=== PATIENT | female | born 1945 | race Caucasian/White ===

== ENCOUNTER 2018-11-27 13:59 | Emergency (ER) | payer MEDICARE ==
--- NOTE | 2018-11-27 14:25 | ED.PDOC ---
History of Present Illness - General Chief Complaint: Chest Pain/MT Stated Complaint: right shoulder pain radiating to chest Time Seen by Provider: 11/27/18 14:21 Source: patient Exam Limitations: no limitations - History of Present Illness Initial Comments: CHEST PAIN WHILE DRIVING. ACUTE ONSET THAT STARTED ON THE RIGHT SHOULDER AND RADIATED TO THE RIGHT RIBCAGE. SHE DESCRIBES IT A CRAMPY SHARP PAIN THAT LASTED 10 MINUTES ASSOCIATED WITH DIAPHORESIS. SHE RATED THE PAIN BETWEEN A 6- 8/10. SHE STOPPED AT A [facility] AND THEN CALLED EMS. SHE WAS TRANSPORTED BY AMBULANCE. EN ROUTE SHE WAS GIVEN ASA AND SINCE THEN SHE HAS BEEN PAIN FREE. SHE VOICES THAT THIS IS THE R=THIRD EPISODE THAT SHE HAS. NONE HAS EVER LASTED MORE THAN 10 MINUTES. SHE IS A SMOKER AND HAS HTN AND CHOLESTEROL. Timing/Duration: other - 10 MINUTES Severity/Quality: moderate Location: shoulder Chest Pain Radiation: other - RIGHT RIB CAGE Activities at Onset: none Prior Chest Pain/Cardiac Workup: no prior chest pain Improving Factors: nothing Worsening Factors: nothing Aspirin Treatment Today: 325 mg x 1 Associated Symptoms: diaphoresis, shortness of breath Allergies/Adverse Reactions: Allergies NO KNOWN ALLERGY Allergy (Verified 11/27/18 14:28) Home Medications: Ambulatory Orders Atorvastatin Calcium [Lipitor] 10 mg PO BEDTIME 11/27/18 Cetirizine HCl [ZyrTEC] 10 mg PO BEDTIME 11/27/18 Cholecalciferol [Vitamin D3] 5,000 unit PO BEDTIME 11/27/18 Losartan Potassium 50 mg PO BEDTIME 11/27/18 Nitrofurantoin Cap [Macrodantin Cap] 50 mg PO BEDTIME 11/27/18 Nitroglycerin 0.4 mg Tab [Nitrostat] 0.4 mg SL .Q5M #20 bttl 11/27/18 Review of Systems - Review of Systems Constitutional: States: no symptoms reported EENTM: States: no symptoms reported Respiratory: States: short of breath Cardiology: States: chest pain Genitourinary: States: no symptoms reported Musculoskeletal: States: no symptoms reported Skin: States: no symptoms reported Neurological: States: no symptoms reported Endocrine: States: no symptoms reported Hematologic/Lymphatic: States: no symptoms reported Past Medical History (General) - Patient Medical History Hx Asthma: No Hx of COPD: No Hx Cardiac Disorders: No Hx Hypertension: Yes - AND CHOLESTEROL Hx Diabetes: No Surgical History: Hysterectomy - Vaccination History Hx Influenza Vaccination: Yes - 2018 Hx Pneumococcal Vaccination: Yes - 2016 - Social History Hx Tobacco Use: Yes Family Medical History - Family History Mother Family History: No Known Physical Exam - Physical Exam General Appearance: Alert, Well Developed, Well Groomed, Well Nourished Eyes, Ears, Nose, Throat Exam: PERRL/EOMI, normal ENT inspection Neck: non-tender Respiratory: chest non-tender, lungs clear, normal breath sounds Cardiovascular/Chest: normal peripheral pulses, regular rate, rhythm, no edema, no gallop Peripheral Pulses: radial,right: 2+, radial,left: 2+ Gastrointestinal/Abdominal: normal bowel sounds, non tender, soft, no organomegaly Rectal Exam: deferred Extremity: normal range of motion Neurologic: no motor/sensory deficits, oriented x 3 Skin Exam: normal color Progress - Progress Progress: 11/27/18 15:38 11/27/18 14:30 EKG STAT Laboratory Results WBC 8.6 K/mm3 (4.8-10.8) 11/27/18 14:39 RBC 5.40 M/mm3 (4.20-5.40) 11/27/18 14:39 Hgb 14.1 gm/dL (12.0-16.0) 11/27/18 14:39 Hct 43.7 % (36.0-47.0) 11/27/18 14:39 MCV 80.9 fl (81.0-99.0) L 11/27/18 14:39 MCH 26.1 pg (27.0-31.0) L 11/27/18 14:39 MCHC 32.3 g/dL (33.0-37.0) L 11/27/18 14:39 RDW 13.8 % (11.5-14.5) 11/27/18 14:39 Plt Count 255 K/mm3 (130-400) 11/27/18 14:39 MPV 7.6 fl (7.40-10.4) 11/27/18 14:39 Absolute Neuts (auto) 4.60 K/uL (1.8-6.8) 11/27/18 14:39 Absolute Lymphs (auto) 3.00 K/uL (1.0-3.4) 11/27/18 14:39 Absolute Monos (auto) 0.70 K/uL (0.2-0.8) 11/27/18 14:39 Absolute Eos (auto) 0.10 K/uL (0.0-0.4) 11/27/18 14:39 Absolute Basos (auto) 0.10 K/uL (0.0-0.1) 11/27/18 14:39 Neutrophils % 54.1 % (42.0-78.0) 11/27/18 14:39 Lymphocytes % 35.1 % (20.0-50.0) 11/27/18 14:39 Monocytes % 8.4 % (2.0-9.0) 11/27/18 14:39 Eosinophils % 1.7 % (1.0-5.0) 11/27/18 14:39 Basophils % 0.7 % (0.0-2.0) 11/27/18 14:39 Sodium 134 mmol/L (135-145) L 11/27/18 14:39 ekg: HR OF Potassium 4.2 mmol/L (3.6-5.0) 11/27/18 14:39 Chloride 101 mmol/L (101-111) 11/27/18 14:39 Carbon Dioxide 22 mmol/L (21-31) 11/27/18 14:39 Anion Gap 15.2 (12-18) 11/27/18 14:39 BUN 20 mg/dL (7-18) H 11/27/18 14:39 THE PATIENT HAS MAINTAINED CHEST PAIN FREE. Creatinine 0.83 mg/dL (0.6-1.3) 11/27/18 14:39 BUN/Creatinine Ratio 24.1 (10-20) H 11/27/18 14:39 Random Glucose 95 mg/dL (70-105) 11/27/18 14:39 Serum Osmolality 270.7 mOsm/L (275-295) L 11/27/18 14:39 Calcium 8.8 mg/dL (8.4-10.2) 11/27/18 14:39 Total Bilirubin 0.4 mg/dL (0.2-1.0) 11/27/18 14:39 AST 18 IU/L (10-42) 11/27/18 14:39 ALT 20 IU/L (10-60) 11/27/18 14:39 Alkaline Phosphatase 89 IU/L (42-121) 11/27/18 14:39 Troponin I < 0.02 ng/mL (0.01-0.05) 11/27/18 14:39 B-Natriuretic Peptide 14.8 pg/ml (0-100) 11/27/18 14:39 Serum Total Protein 7.5 gm/dL (6.4-8.2) 11/27/18 14:39 Albumin 3.9 g/dl (3.2-5.5) 11/27/18 14:39 Globulin 3.6 gm/dL (2.3-3.5) H 11/27/18 14:39 Albumin/Globulin Ratio 1.1 (1.1-1.9) 11/27/18 14:39 EKG: HR OF 70, MI INTERVAL OF 69, QRS OF 120: IMPRESSION: SINUS RHYTHM, NO ACUTE INJURY PATTERN 11/27/18 15:40 THE PATIENT HAS MAINTAINED CHEST PAIN FREE. SHE NEEDS TO F/U WITH [facility] OF CHOICE. Departure - Departure Clinical Impression: Chest pain, atypical Time of Disposition: 15:43 Disposition: Discharge to Home or Self Care Condition: Good Departure Forms: ED Discharge - Pt. Copy, Patient Portal Self Enrollment Instructions: DI for Chest Pain Referrals: Georgia Montes FNP [Primary Care Provider] - 1-2 Weeks Prescriptions: Nitroglycerin 0.4 mg Tab [Nitrostat] 0.4 mg SL .Q5M #20 bttl Home Medications: Ambulatory Orders Atorvastatin Calcium [Lipitor] 10 mg PO BEDTIME 11/27/18 Cetirizine HCl [ZyrTEC] 10 mg PO BEDTIME 11/27/18 Cholecalciferol [Vitamin D3] 5,000 unit PO BEDTIME 11/27/18 Losartan Potassium 50 mg PO BEDTIME 11/27/18 Nitrofurantoin Cap [Macrodantin Cap] 50 mg PO BEDTIME 11/27/18 Nitroglycerin 0.4 mg Tab [Nitrostat] 0.4 mg SL .Q5M #20 bttl 11/27/18
--- NOTE | 2018-11-27 14:46 | RAD ---
EXAM DESCRIPTION: Chest,1 View CLINICAL HISTORY: 73 years Female, CHEST PAIN COMPARISON: None. TECHNIQUE: Single frontal view of the chest. IMPRESSION: Cardiac silhouette is normal in size. Aorta is partially calcified. Bibasilar atelectasis without lobar consolidation. No pleural effusion or pneumothorax. Thoracic spondylosis. Electronically signed by: Lan Hunt MD 11/27/2018 2:42 PM CDT
[2018-11-27 15:56] VITALS: BP 160/59; TEMP 96.3; O2SAT 93
== END 2018-11-27 16:00 | disposition home or self-care (01) ==
LOC: ER 13:59
DX: R07.89 Other chest pain (principal); R06.02 Shortness of breath; I10 Essential (primary) hypertension; E78.00 Pure hypercholesterolemia, unspecified; F17.200 Nicotine dependence, unspecified, uncomplicated

== ENCOUNTER 2019-06-08 17:07 | Emergency (ER) | payer MEDICARE ==
[2019-06-08 17:33] VITALS: TEMP 97.7
[2019-06-08] MEDS ORDERED: SODIUM CHLORIDE 0.9% (FLUSH) 10 ML SYG IV PRN (17:33)
[2019-06-08] MEDS ORDERED: NITROGLYCERIN 0.4 MG 25 EA TAB SL ONE (17:33)
[2019-06-08] MEDS ORDERED: ASPIRIN TABLET 325 MG TAB PO ONE (17:33)
[2019-06-08] MEDS ORDERED: ONDANSETRON INJ 4 MG/2 ML VIAL IV ONE (17:33)
[2019-06-08] MEDS ORDERED: ALUM & MAG HYDROX-SIMETHICONE 30 ML, LIDOCAINE VISCOUS 2% 15 ML PO ONE ×2 (17:34)
--- NOTE | 2019-06-08 17:37 | ED.PDOC ---
History of Present Illness - General Chief Complaint: Chest Pain/SC Stated Complaint: chest discomfort,nausea Time Seen by Provider: 06/08/19 17:32 - History of Present Illness Initial Comments: Patient presents to the ED complaining of chest pain. PMH is significant for hypertension, high cholesterol, smoking. She states that the symptoms started yesterday and she thinks that it might be indigestion. She did not eat breakfast this morning because she felt nauseated. She was able to eat some lunch but she felt chest pain afterward. She complains of associated nausea and shortness of breath. No vomiting or diaphoresis. Mild headache. She states that she does not have any known CAD, last had a stress test more than 5 years ago but it was normal at that time. No other complaints. Timing/Duration: 7-24 hours Severity/Quality: mild Location: substernal, epigastric, shoulder, back Chest Pain Radiation: back Activities at Onset: none Prior Chest Pain/Cardiac Workup: stress test Improving Factors: nothing Worsening Factors: eating Nitro Today/Relief: no nitro taken today Aspirin Treatment Today: 81 mg x 1 Associated Symptoms: fatigue, shortness of breath, weakness Allergies/Adverse Reactions: Allergies Cephalexin [From Keflex] Allergy (Verified 06/08/19 17:33) Home Medications: Ambulatory Orders Atorvastatin Calcium [Lipitor] 10 mg PO BEDTIME 11/27/18 Cholecalciferol [Vitamin D3] 5,000 unit PO BEDTIME 11/27/18 Losartan Potassium 50 mg PO BEDTIME 11/27/18 Nitrofurantoin Cap [Macrodantin Cap] 100 mg PO BEDTIME 11/27/18 Nitroglycerin 0.4 mg Tab [Nitrostat] 0.4 mg SL .Q5M PRN 06/08/19 Review of Systems - Review of Systems Constitutional: States: no symptoms reported EENTM: States: no symptoms reported Respiratory: States: short of breath Cardiology: States: chest pain Gastrointestinal/Abdominal: States: abdominal pain Genitourinary: States: no symptoms reported Musculoskeletal: States: no symptoms reported Skin: States: no symptoms reported Neurological: States: no symptoms reported Hematologic/Lymphatic: States: no symptoms reported All other Systems: Reviewed and Negative Past Medical History (General) - Patient Medical History Hx Stroke: No Hx Asthma: No Hx of COPD: No Hx Cardiac Disorders: No Hx Congestive Heart Failure: No Hx Hypertension: Yes Hx Diabetes: No Surgical History: Hysterectomy - Vaccination History Hx Influenza Vaccination: Yes Hx Pneumococcal Vaccination: Yes - Social History Hx Tobacco Use: Yes Family Medical History - Family History Mother Family History: No Known Physical Exam - Physical Exam General Appearance: Alert, Comfortable, No apparent distress, Obese, Well Developed, Well Groomed Eyes, Ears, Nose, Throat Exam: normal ENT inspection Respiratory: chest non-tender, lungs clear, normal breath sounds, no respiratory distress, no accessory muscle use Cardiovascular/Chest: normal peripheral pulses, regular rate, rhythm, no murmur Gastrointestinal/Abdominal: normal bowel sounds, other - mild epigastric tenderness Neurologic: no motor/sensory deficits, alert, oriented x 3 Progress - Progress Progress: 06/08/19 19:07 Patient reassessed, workup as above. HEART score 5. Recommended admit for serial troponins, possible stress test. Explained to patient that she is NOT at low risk for ACS. She refused admission and requested to be discharged. All risks, benefits and alternatives discussed. Asked to at least send a repeat troponin which she has also declined. Advised patient to continue daily aspirin and follow up with her PCP for additional testing. Understands that she is welcome to return to the ED at any point to continue treatment. MDM: Patient presents to the ED complaining of chest pain. Workup as below. HEART score 5. I explained to the patient that she is high risk for ACS and that she needs to be admitted for continued evaluation and management. She refused at this time. I recommended minimum of a repeat troponin which she also declined. Risks, benefits and alternatives reviewed including risk of heart attack, sudden cardiac , permanent disability and other unforseen consequences. She continues to refuse admit at this time. Will continue outpatient symptomatic management and she will follow up with PCP. Home care instructions and return indications reviewed. - Results/Orders Results/Orders: 06/08/19 17:33 Telemetry .ONCE EKG Stat Pulse Ox Stat Laboratory Results - last 24 hr 06/08/19 17:33 WBC 13.0 H RBC 5.53 H Hgb 14.3 Hct 43.8 MCV 79.3 L MCH 25.9 L MCHC 32.7 L RDW 14.0 Plt Count 224 MPV 7.8 Absolute Neuts (auto) 7.80 H Absolute Lymphs (auto) 3.80 H Absolute Monos (auto) 1.00 H Absolute Eos (auto) 0.20 Absolute Basos (auto) 0.20 H Neutrophils % 60.0 Lymphocytes % 29.6 Monocytes % 7.5 Eosinophils % 1.4 Basophils % 1.5 PT 9.1 INR 0.91 PTT (SP) 26.5 Sodium 130 L Potassium 4.0 Chloride 94 L Carbon Dioxide 23 Anion Gap 17.0 BUN 11 Creatinine 0.70 BUN/Creatinine Ratio 15.7 Random Glucose 99 Serum Osmolality 260.2 L Calcium 9.2 Magnesium 1.8 Creatine Kinase 156 H CK-MB (CK-2) 3.2 CK-MB (CK-2) % Not Reportable Troponin I < 0.02 B-Natriuretic Peptide 97.0 - EKG/XRAY/CT Comments: 1710 normal sinus rhythm rate 68, normal axis normal interval no STEMI Departure - Departure Clinical Impression: Chest pain Time of Disposition: 19:09 Disposition: Discharge to Home or Self Care Departure Forms: ED Discharge - Pt. Copy, Patient Portal Self Enrollment Instructions: DI for Chest Pain Activity: increase activity as tolerated Referrals: Georgia Montes FNP [Primary Care Provider] - 1-2 Weeks Home Medications: Ambulatory Orders Atorvastatin Calcium [Lipitor] 10 mg PO BEDTIME 11/27/18 Cholecalciferol [Vitamin D3] 5,000 unit PO BEDTIME 11/27/18 Losartan Potassium 50 mg PO BEDTIME 11/27/18 Nitrofurantoin Cap [Macrodantin Cap] 100 mg PO BEDTIME 11/27/18 Nitroglycerin 0.4 mg Tab [Nitrostat] 0.4 mg SL .Q5M PRN 06/08/19 Additional Instructions: Return to the ED with any persistent or worsening symptoms
[2019-06-08] MEDS ORDERED: LIDOCAINE HCL 2% (MOUTH-THROAT) 15 ML UD ONE (17:48)
[2019-06-08] MEDS ORDERED: ALUM & MAG HYDROX-SIMETHICONE 30 ML UD ONE (17:48)
[2019-06-08 18:08] VITALS: O2SAT 97
--- NOTE | 2019-06-08 18:26 | RAD ---
EXAM DESCRIPTION: Chest, x-ray 1 View CLINICAL HISTORY: chest pain COMPARISON: November 27, 2018 FINDINGS: Cardiac silhouette is within normal limits. Aorta is tortuous. There is atherosclerosis. EKG leads project over the chest. Upper ribs were not completely included in the exam. There is no focal parenchymal or pleural disease. There is no acute osseous process visualized. IMPRESSION: No evidence of acute cardiopulmonary disease. Electronically signed by: Jose Miguel Harman MD 06/08/2019 6:25 PM CDT
[2019-06-08 19:03] VITALS: BP 169/85
== END 2019-06-08 19:14 | disposition home or self-care (01) ==
LOC: ER 17:07
DX: R07.2 Precordial pain (principal); R06.02 Shortness of breath; R10.9 Unspecified abdominal pain; R11.0 Nausea; R51 Headache; I10 Essential (primary) hypertension; E66.9 Obesity, unspecified; Z87.891 Personal history of nicotine dependence; Z79.899 Other long term (current) drug therapy; Z88.1 Allergy status to other antibiotic agents; Z68.27 Body mass index [BMI] 27.0-27.9, adult
CPT/HCPCS: 36415; 71045; 80048; 82550; 82553; 83880; 84484; 85025; 85610; 85730; 93005; J2405

== ENCOUNTER 2019-06-09 10:03 | Emergency (ER) | payer MEDICARE ==
[2019-06-09] MEDS ORDERED: SODIUM CHLORIDE 0.9% (FLUSH) 10 ML SYG IV PRN (10:37)
[2019-06-09] MEDS ORDERED: FAMOTIDINE IV PREMIX 20 MG in PREMIX BAG 1 BAG IVPB ONE (10:41)
[2019-06-09] MEDS ORDERED: DICYCLOMINE HCL INJ 20 MG/2 ML AMP IM ONE (10:42)
[2019-06-09] MEDS ORDERED: FAMOTIDINE IV PREMIX 50 ML IVPB ONE (10:53)
--- NOTE | 2019-06-09 11:16 | RAD ---
EXAM: Chest,1 View CLINICAL HISTORY: chest pain COMPARISON STUDY: Chest x-ray from June 08, 2019 TECHNICAL: A single anteroposterior (AP) view of the chest was performed. FINDINGS: No consolidations, effusions, or edema. The heart size is not enlarged. AP portable technique causes magnification with some enlargement of the cardiac silhouette. Atherosclerotic calcifications are present. IMPRESSION: NO ACUTE ABNORMALITY. PA AND LATERAL CHEST X-RAYS ARE RECOMMENDED WHEN POSSIBLE. Electronically signed by: Nain Pedersen MD 06/09/2019 11:15 AM CDT
--- NOTE | 2019-06-09 12:00 | ED.PDOC ---
History of Present Illness - General Chief Complaint: General Stated Complaint: All over body aches Time Seen by Provider: 06/09/19 10:37 - History of Present Illness Initial Comments: Pt says that she is having lower chest pain , pt was admitted in the ER yesterday and her work up was negative , still having 4/10 chest pain associated with some nausea and bodyaches with subjective fever Improving Factors: nothing Worsening Factors: nothing Associated Symptoms: malaise, nausea/vomiting Allergies/Adverse Reactions: Allergies Cephalexin [From Keflex] Allergy (Verified 06/08/19 17:33) Home Medications: Ambulatory Orders Atorvastatin Calcium [Lipitor] 10 mg PO BEDTIME 11/27/18 Cholecalciferol [Vitamin D3] 5,000 unit PO BEDTIME 11/27/18 Losartan Potassium 50 mg PO BEDTIME 11/27/18 Nitrofurantoin Cap [Macrodantin Cap] 100 mg PO BEDTIME 11/27/18 Nitroglycerin 0.4 mg Tab [Nitrostat] 0.4 mg SL .Q5M PRN 06/08/19 levoFLOXacin [Levaquin] 500 mg PO DAILY #10 tab 06/09/19 Review of Systems - Review of Systems Constitutional: States: see HPI EENTM: States: no symptoms reported Respiratory: States: no symptoms reported Cardiology: States: see HPI Gastrointestinal/Abdominal: States: no symptoms reported Genitourinary: Denies: no symptoms reported Musculoskeletal: States: no symptoms reported Skin: States: no symptoms reported Neurological: States: no symptoms reported Endocrine: States: no symptoms reported Hematologic/Lymphatic: States: no symptoms reported All other Systems: Reviewed and Negative Past Medical History (General) - Patient Medical History Hx Stroke: No Hx Asthma: No Hx of COPD: No Hx Cardiac Disorders: No Hx Congestive Heart Failure: No Hx Hypertension: Yes Hx Diabetes: No Hx Cancer: No Surgical History: Hysterectomy - Vaccination History Hx Influenza Vaccination: Yes Hx Pneumococcal Vaccination: Yes - Social History Hx Tobacco Use: Yes Hx Alcohol Use: No - Female History Patient is a Female of Child Bearing Age (10 -59 yrs old): No Patient : No Family Medical History - Family History Mother Family History: No Known Living Status: Physical Exam - Physical Exam General Appearance: Alert Eye Exam: bilateral normal Ears, Nose, Throat: hearing grossly normal, normal ENT inspection Neck: non-tender, full range of motion, supple Respiratory: chest non-tender, lungs clear Cardiovascular/Chest: regular rate, rhythm, no edema Gastrointestinal/Abdominal: non tender, soft Back Exam: normal inspection, no CVA tenderness Extremity: normal range of motion, non-tender, normal inspection Neurologic: no motor/sensory deficits, alert, normal mood/affect, oriented x 3 Skin Exam: normal color, warm/dry Progress - Progress Progress: 06/09/19 13:10 06/09/19 10:37 Sodium Chloride 0.9% (Flush) [Saline Flush Syringe] 3 ml IV PRN PRN 06/09/19 10:45 EKG STAT 06/09/19 12:17 CTA Chest [CT] Stat 06/09/19 12:45 Urine Culture Stat 06/10/19 09:00 Pulse Ox Daily Laboratory Results WBC 13.5 K/mm3 (4.8-10.8) H 06/09/19 11:07 RBC 5.71 M/mm3 (4.20-5.40) H 06/09/19 11:07 Hgb 14.9 gm/dL (12.0-16.0) 06/09/19 11:07 Hct 45.1 % (36.0-47.0) 06/09/19 11:07 MCV 79.0 fl (81.0-99.0) L 06/09/19 11:07 MCH 26.0 pg (27.0-31.0) L 06/09/19 11:07 MCHC 32.9 g/dL (33.0-37.0) L 06/09/19 11:07 RDW 13.9 % (11.5-14.5) 06/09/19 11:07 Plt Count 226 K/mm3 (130-400) 06/09/19 11:07 MPV 7.7 fl (7.40-10.4) 06/09/19 11:07 Absolute Neuts (auto) 9.40 K/uL (1.8-6.8) H 06/09/19 11:07 Absolute Lymphs (auto) 2.70 K/uL (1.0-3.4) 06/09/19 11:07 Absolute Monos (auto) 1.20 K/uL (0.2-0.8) H 06/09/19 11:07 Absolute Eos (auto) 0.10 K/uL (0.0-0.4) 06/09/19 11:07 Absolute Basos (auto) 0.10 K/uL (0.0-0.1) 06/09/19 11:07 Neutrophils % 69.8 % (42.0-78.0) 06/09/19 11:07 Lymphocytes % 19.9 % (20.0-50.0) L 06/09/19 11:07 Monocytes % 9.1 % (2.0-9.0) H 06/09/19 11:07 Eosinophils % 0.5 % (1.0-5.0) L 06/09/19 11:07 Basophils % 0.7 % (0.0-2.0) 06/09/19 11:07 PT 9.1 SECONDS (9.0-10.9) 06/09/19 11:07 INR 0.91 (0.9-1.15) 06/09/19 11:07 PTT (SP) 28.3 SECONDS (21.8-31.6) 06/09/19 11:07 D-Dimer, Quantitative 0.50 mg/L FEU (0-0.49) H 06/09/19 11:07 Sodium 130 mmol/L (135-145) L 06/09/19 11:07 Potassium 4.2 mmol/L (3.6-5.0) 06/09/19 11:07 Chloride 94 mmol/L (101-111) L 06/09/19 11:07 Carbon Dioxide 24 mmol/L (21-31) 06/09/19 11:07 Anion Gap 16.2 (12-18) 06/09/19 11:07 BUN 9 mg/dL (7-18) 06/09/19 11:07 Creatinine 0.66 mg/dL (0.6-1.3) 06/09/19 11:07 BUN/Creatinine Ratio 13.6 (10-20) 06/09/19 11:07 Random Glucose 115 mg/dL (70-105) H 06/09/19 11:07 Serum Osmolality 260.4 mOsm/L (275-295) L 06/09/19 11:07 Calcium 9.4 mg/dL (8.4-10.2) 06/09/19 11:07 Magnesium 2.2 mg/dL (1.8-2.5) 06/09/19 11:07 Creatine Kinase 122 IU/L (26-140) 06/09/19 11:07 CK-MB (CK-2) 2.2 ng/mL (0.0-4.4) 06/09/19 11:07 CK-MB (CK-2) % Not Reportable 06/09/19 11:07 Troponin I < 0.02 ng/mL (0.01-0.05) 06/09/19 11:07 Urine Color Yellow (Yellow) 06/09/19 12:45 Urine Appearance Sl cloudy (Clear) 06/09/19 12:45 Urine pH 7.0 (4.5-7.8) 06/09/19 12:45 Ur Specific [place] 1.015 (1.005-1.030) 06/09/19 12:45 Urine Protein Negative mg/dL 06/09/19 12:45 Urine Glucose (UA) Negative mg/dL (Negative) 06/09/19 12:45 Urine Ketones 15 mg/dL (NEGATIVE) H 06/09/19 12:45 Urine Blood Large (Negative) H 06/09/19 12:45 Urine Nitrite Negative 06/09/19 12:45 Urine Bilirubin Negative (NEGATIVE) 06/09/19 12:45 Urine Urobilinogen 0.2 mg/dL (0.2-1.0) 06/09/19 12:45 Ur Leukocyte Esterase Negative (Negative) 06/09/19 12:45 Urine RBC 20-30 /hpf H 06/09/19 12:45 Urine WBC 3-5 /hpf H 06/09/19 12:45 Ur Epithelial Cells 3-5 /hpf 06/09/19 12:45 Urine Bacteria 3+ H 06/09/19 12:45 - Results/Orders Results/Orders: EKG : Normal Sinus rhythm Departure - Departure Clinical Impression: Chest pain, atypical, Generalized pain, Generally unwell, General symptom Disposition: Discharge to Home or Self Care Departure Forms: ED Discharge - Pt. Copy, Patient Portal Self Enrollment Diet: resume usual diet Activity: increase activity as tolerated, walking as tolerated Referrals: GENNY ROMO MD [Primary Care Provider] - 1-2 Weeks Home Medications: Ambulatory Orders Atorvastatin Calcium [Lipitor] 10 mg PO BEDTIME 11/27/18 Cholecalciferol [Vitamin D3] 5,000 unit PO BEDTIME 11/27/18 Losartan Potassium 50 mg PO BEDTIME 11/27/18 Nitrofurantoin Cap [Macrodantin Cap] 100 mg PO BEDTIME 11/27/18 Nitroglycerin 0.4 mg Tab [Nitrostat] 0.4 mg SL .Q5M PRN 06/08/19 levoFLOXacin [Levaquin] 500 mg PO DAILY #10 tab 06/09/19 Comments: Follow up PCP in 1-2 days
--- NOTE | 2019-06-09 13:19 | CT ---
PROCEDURE: CT Angiography Chest With Intravenous Contrast CLINICAL INDICATION: The patient is 73 years old and is Female; chest pain MAIN TECHNIQUE: Axial computed tomographic angiography images of the chest with intravenous contrast. Sagittal and coronal reformatted images were created and reviewed. This CT exam was performed using one or more of the following dose reduction techniques: automated exposure control, adjustment of the mA and/or kV according to patient size, and/or use of iterative reconstruction technique. MIP reconstructed images were created and reviewed. COMPARISON: Chest x-ray from earlier today. FINDINGS: PULMONARY ARTERIES: There is no evidence of pulmonary artery embolus. The contrast bolus is well timed for this evaluation. AORTA: The thoracic aorta is within normal limits without aneurysm or dissection. GREAT VESSELS OF AORTIC ARCH: Great vessels are unremarkable in appearance. LUNGS: No focal pulmonary consolidation or pulmonary nodules are seen. There is biapical pleuroparenchymal scarring. There is patchy discoid dependent bibasilar atelectasis. Motion artifact at the extreme lung bases obscures some of the smaller distal pulmonary artery branches. PLEURAL SPACE: No pleural effusions identified. No pneumothorax. HEART: No pericardial effusion is identified. Heart is enlarged in size. There are coronary artery calcifications noted. No evidence of RV dysfunction. THYROID: Heterogeneity of the thyroid gland is noted. BONES/JOINTS: No acute fracture. No dislocation. SOFT TISSUES: Unremarkable. LYMPH NODES: There is no mediastinal, hilar or axillary lymphadenopathy. IMPRESSION: There is no evidence of pulmonary artery embolus. Electronically signed by: Gurvinder Marx MD 06/09/2019 1:18 PM CDT
[2019-06-09 13:53] VITALS: O2SAT 99
[2019-06-09 13:56] VITALS: BP 174/84; TEMP 98.6
== END 2019-06-09 13:45 | disposition home or self-care (01) ==
LOC: ER 10:03
DX: R07.89 Other chest pain (principal); R52 Pain, unspecified; R68.89 Other general symptoms and signs; R11.0 Nausea; I10 Essential (primary) hypertension; Z87.891 Personal history of nicotine dependence; Z79.899 Other long term (current) drug therapy
CPT/HCPCS: 36415; 71045; 71275; 80048; 81001; 82550; 82553; 84484; 85025; 85379; 85610; 85730; 87086; 87502; 93005; 94760; J0500; J3490

== ENCOUNTER → 2020-03-12 | Outpatient (CLI) | payer MEDICARE | LOC: GMAE 14:47 | PROVIDERS: ATTEND Family Medicine | DX: I10 Essential (primary) hypertension (principal) ==